=== PATIENT | female | born 1990 | race Two or more races ===

== ENCOUNTER → 2021-11-15 | Outpatient (CLI) | payer BC ==
[2021-11-15 13:01] LABS: BASOPHILS % 0.8 % (0.0-2.0); HEMATOCRIT. 39.7 % (36.0-48.0); LYMPHOCYTES % 33.7 % (20.0-50.0); MEAN CORPUSCULAR HEMOGLOBIN 28.1 pg (28.0-32.0); MEAN CORPUSCULAR VOLUME 86.1 fL (81.0-99.0); MEAN PLATELET VOLUME 8.3 fl (7.4-10.4); MONOCYTES % 5.3 % (2.0-8.0); NEUTROPHILS % 58.2 % (40.0-76.0); PLATELET 294 x1000/uL (130-400); RED BLOOD CELL COUNT 4.62 mill/uL (4.2-5.4); RED CELL DISTRIBUTION WIDTH 13.6 % (11.6-14.6)
[2021-11-15 13:11] LABS: CHLORIDE 105 mEq/L (98-107)
[2021-11-15 13:30] LABS: HDL CHOLESTEROL 52 mg/dL (40-59); LDL CHOLESTEROL 147 mg/dL (5-100); PHOSPHORUS 3.2 mg/dL (2.5-4.9); T4 FREE 1.27 ng/dL (0.76-1.46); TOTAL IRON BINDING CAPACITY 348 ug/dL (250-450)
[2021-11-15 14:41] LABS: FOLIC ACID (FOLATE) SERUM 15.3 ng/mL (>5.38)
[2021-11-16 09:09] LABS: FOLICLE STIMULATING HORMONE 6.5 mIU/mL (.); LUTEINIZING HORMONE 8.6 mIU/mL (.); VITAMIN D 25-OH 36.3 ng/mL (30.0-100.0)
[2021-11-16 13:07] LABS: ANTI-DNA DOUBLE STRANDED QUANT 1 IU/mL (0-9); ANTI-NUCLEAR ANTIBODIES DIRECT Positive (Negative)
== END | disposition home or self-care (01) ==
LOC: LAB 12:21
PROVIDERS: ATTEND Internal Medicine
DX: Z00.00 Encounter for general adult medical examination without abnormal findings (principal); Z13.1 Encounter for screening for diabetes mellitus; Z13.0 Encounter for screening for diseases of the blood and blood-forming organs and certain disorders involving the immune mechanism; Z13.29 Encounter for screening for other suspected endocrine disorder; Z13.220 Encounter for screening for lipoid disorders; E28.2 Polycystic ovarian syndrome; N97.0 Female infertility associated with anovulation; E03.9 Hypothyroidism, unspecified
CPT/HCPCS: 36415; 80053; 80061; 80327; 82306; 82607; 82672; 82728; 82746; 83001; 83002; 83036; 83540; 83550; 83735; 84100; 84403; 84439; 84443; 84479; 85025; 86038; 86200; 86225; 86430

== ENCOUNTER → 2022-03-13 | Outpatient (CLI) | payer BC ==
[2022-03-15 08:07] LABS: ESTRADIOL 53.1 pg/mL (.); LUTEINIZING HORMONE 9.5 mIU/mL (.)
== END | disposition home or self-care (01) ==
LOC: LAB 12:04
PROVIDERS: ATTEND Internal Medicine Geriatric Medicine
DX: L30.9 Dermatitis, unspecified (principal); G90.9 Disorder of the autonomic nervous system, unspecified
CPT/HCPCS: 36415; 82533; 82670; 83001; 83002; 85651

== ENCOUNTER → 2022-04-02 | Outpatient (CLI) | payer BC | END | disposition home or self-care (01) | LOC: CARD 12:43 | PROVIDERS: ATTEND Internal Medicine Geriatric Medicine | DX: I07.1 Rheumatic tricuspid insufficiency (principal) | CPT/HCPCS: 93306 ==

== ENCOUNTER → 2023-06-25 | Outpatient (CLI) | payer BC | END | disposition home or self-care (01) | LOC: RAD 15:32 | PROVIDERS: ATTEND Internal Medicine Geriatric Medicine | DX: S80.01XA Contusion of right knee, initial encounter (principal); X58.XXXA Exposure to other specified factors, initial encounter; Y93.89 Activity, other specified; Y92.89 Other specified places as the place of occurrence of the external cause; Y99.8 Other external cause status | CPT/HCPCS: 73562 ==